=== PATIENT | male | born 1945 | race Caucasian/White ===

== ENCOUNTER → 2024-01-09 10:39 | Outpatient (REF) | payer MEDICARE, SELFPAY | LOC: HWRAD 10:39 | PROVIDERS: ATTENDING PHYSICIAN Specialist; FAMILY PHYSICIAN Family Medicine | DX: N20.0 Calculus of kidney (principal) | CPT/HCPCS: 76775 ==

== ENCOUNTER → 2024-08-09 13:20 | Outpatient (REF) | payer MEDICARE, SELFPAY ==
[2024-08-09 14:54] LABS: Blood Urea Nitrogen 21 mg/dl (9-20); Calcium 9.8 mg/dl (8.4-10.2); Carbon Dioxide 26 mmol/L (22-30); Chloride 106 mmol/L (98-107); Glucose 134 mg/dl (70-99); Potassium 4.6 mmol/L (3.5-5.1); Sodium 141 mmol/L (135-145); eGFR > 60.00
== END ==
LOC: REG 13:20
PROVIDERS: ATTENDING PHYSICIAN Specialist; FAMILY PHYSICIAN Family Medicine
DX: N18.31 Chronic kidney disease, stage 3a (principal); R80.9 Proteinuria, unspecified
CPT/HCPCS: 36415; 80048

== ENCOUNTER → 2024-09-23 14:39 | Outpatient (REF) | payer MEDICARE, SELFPAY ==
[2024-09-23 15:34] LABS: Urine Character Slightly Cloudy (Clear)
[2024-09-23 16:49] LABS: Urine Squamous Cell 0-2 /LPF (Few)
[2024-09-23 16:56] LABS: Urine White Cell 21-25 /HPF (0-5)
== END ==
LOC: REG 14:39
PROVIDERS: ATTENDING PHYSICIAN Specialist; FAMILY PHYSICIAN Family Medicine
DX: N39.0 Urinary tract infection, site not specified (principal)
CPT/HCPCS: 81003; 81015; 87086; 87147; 87186

== ENCOUNTER → 2024-09-28 11:16 | Outpatient (REF) | payer MEDICARE, SELFPAY | LOC: CLAB 11:16 | PROVIDERS: ATTENDING PHYSICIAN Specialist | DX: N39.0 Urinary tract infection, site not specified (principal) | CPT/HCPCS: 87086; 87147 ==

== ENCOUNTER → 2024-09-30 14:06 | Outpatient (REF) | payer MEDICARE, SELFPAY | LOC: HWRAD 14:06 | PROVIDERS: ATTENDING PHYSICIAN Specialist; FAMILY PHYSICIAN Family Medicine | DX: N39.0 Urinary tract infection, site not specified (principal); N20.1 Calculus of ureter | CPT/HCPCS: 76770 ==

== ENCOUNTER → 2024-12-22 15:23 | Outpatient (REF) | payer MEDICARE, SELFPAY ==
[2024-12-22 16:37] LABS: Blood Urea Nitrogen 26 mg/dl (9-20); Calcium 9.8 mg/dl (8.4-10.2); Carbon Dioxide 30 mmol/L (22-30); Chloride 102 mmol/L (98-107); Glucose 182 mg/dl (70-99); Potassium 4.3 mmol/L (3.5-5.1); Sodium 137 mmol/L (135-145); Uric Acid 4.8 mg/dl (3.5-8.5); eGFR > 60.00
== END ==
LOC: REG 15:23
PROVIDERS: ATTENDING PHYSICIAN Specialist; FAMILY PHYSICIAN Family Medicine
DX: N18.31 Chronic kidney disease, stage 3a (principal); R80.9 Proteinuria, unspecified; N20.0 Calculus of kidney
CPT/HCPCS: 36415; 80048; 82570; 83970; 84156; 84550